=== PATIENT | male | born 2000 | race Caucasian/White ===

== ENCOUNTER 2022-04-05 22:25 | Emergency (ER) | payer OTHER ==
[~2022-04-05] VITALS: Ht 185.4 cm; Wt 85.3 kg
[2022-04-05 22:39] VITALS: BP_SYST 144
--- NOTE | 2022-04-05 22:45 | NUR ---
RT HERE C/O RT THUMB PAIN S/P INJURY WHILE AT WORK, NOTED SWELLING, NO OBVIOUS DEFORMITY NOTED NAD NO OPEN WOUND. PMH:DENIES PT AAOX4, NOT IN ANY DISTRESS, PENDING MD VANEGAS.
--- NOTE | 2022-04-06 01:53 | NUR ---
Patient ambualtory to bed 4 for evaluation and treatment
--- NOTE | 2022-04-06 02:00 | NUR ---
ER at bedside examining patient.
[2022-04-06] MEDS ORDERED: NAPR-1172 PO (02:15)
[2022-04-06 03:06] VITALS: BP_SYST 128
--- NOTE | 2022-04-06 03:06 | NUR ---
Patient given written and verbal discharge instructions and verbalizes understanding. ER MD discussed with patient the results and treatment provided. Patient in stable condition. ID arm band removed. Rx of NAPROXEN given. Patient educated on pain management and to follow up with PMD. Pain Scale 0/10 Opportunity for questions provided and answered. Medication side effect fact sheet provided.
== END 2022-04-06 03:06 | disposition home or self-care (01) ==
LOC: SED 22:25
DX: S63.641A Sprain of metacarpophalangeal joint of right thumb, initial encounter (principal); Z79.899 Other long term (current) drug therapy; W24.0XXA Contact with lifting devices, not elsewhere classified, initial encounter; Y93.89 Activity, other specified; Y92.89 Other specified places as the place of occurrence of the external cause; Y99.8 Other external cause status
CPT/HCPCS: 73140-TC; 99283